=== PATIENT | male | born 1945 | race Caucasian/White ===

== ENCOUNTER → 2016-09-03 | Outpatient (CLI) | payer BC ==
[~2016-09-03] MED LIST: ALLO300T2 PO; CLB/200 PO; LSN/10125 PO; SIMV40TA2 PO
[2016-09-03 10:12] LABS: BASO % 0.3 %; BASO ABS # 0.01 K/uL (0-0.2); COMPLETE YES; EOS % 2.5 %; HEMATOCRIT 40.9 % (42-52); LYMPH % 27.3 %; MEAN CELL VOLUME 92.5 fL (80-100); MEAN CORPUSCULAR HEMOGLOBIN 33.5 pg (25-34); MEAN CORPUSCULAR HGB CONC 36.2 g/dl (32-36); MEAN PLATELET VOLUME 11.4 fL (7.4-10.4); MONO % 8.7 %; NEUT % 61.2 %; PLATELET COUNT 143 K/uL (130-400); RED BLOOD COUNT 4.42 M/uL (4.7-6.1); WHITE BLOOD COUNT 3.66 K/uL (4.8-10.8)
[2016-09-03 10:16] LABS: URINE APPEARANCE CLEAR (CLEAR); URINE BILIRUBIN NEG (NEG); URINE COLOR DK YELLOW; URINE NITRITE NEG (NEG); URINE SPECIFIC GRAVITY 1.028 (1.000-1.030); UROBILINOGEN NEG (NEG)
[2016-09-03 10:20] LABS: MANUAL MICROSCOPIC REQUIRED? NO; REVIEW REQ? NO
[2016-09-03 10:40] LABS: ALT/SGPT 23 U/L (12-78); AST/SGOT 13 U/L (15-37); BLOOD UREA NITROGEN 22 mg/dl (7-18); BUN/CREATININE RATIO 15.8 (10-20); CALCIUM 8.7 mg/dl (8.5-10.1); CARBON DIOXIDE 27 mmol/L (21-32); CHLORIDE 109 mmol/L (98-107); GLUCOSE 109 mg/dl (70-99); POTASSIUM 3.2 mmol/L (3.5-5.1); SODIUM 144 mmol/L (136-145)
[2016-09-03 10:42] LABS: ESTIMATED AVERAGE GLUCOSE 111 mg/dl; HA1C FLAG Normal (Normal)
[2016-09-03 10:46] LABS: CHOLESTEROL 129 mg/dl (0-200); CHOLESTEROL/HDL RATIO 3.7; HDL CHOLESTEROL 35 mg/dl; LDL CHOLESTEROL CALCULATED 68 mg/dl; TRIGLYCERIDES 130 mg/dl (0-150); VERY LOW DENSITY LIPOPROT CALC 26 mg/dl
--- NOTE | 2016-09-08 12:11 | CODING QUERY MEDICAL NECESSITY ---
SUPPORTING DIAGNOSIS NEEDED A supporting diagnosis is required for the test/procedure performed on this patient in order for us to be reimbursed by the patient's insurance. Please provide a supporting diagnosis for the following test/procedure listed below next to the test name along with your signature. *If there is no additional diagnosis for this patient that would support the following test/procedure please document that below next to the test/procedure. Test(s)/Procedure(s) that require a supporting diagnosis: * GLYCATED HEMOGLOBIN DIAGNOSIS: * PSA DIAGNOSIS: * DOS: 09/03/16 Provider Signature: Date: Thank you Elaine Burciaga [facility] Once completed, please kindly fax back to [phone] For questions please call [phone]
== END | disposition home or self-care (01) ==
LOC: C.LAB1850 07:59
PROVIDERS: ATTEND Internal Medicine
DX: E78.00 Pure hypercholesterolemia, unspecified (principal); I10 Essential (primary) hypertension; N28.9 Disorder of kidney and ureter, unspecified; R73.9 Hyperglycemia, unspecified; R97.20 Elevated prostate specific antigen [PSA]

== ENCOUNTER → 2017-03-10 | Outpatient (CLI) | payer BC ==
[2017-03-10 10:26] LABS: COMPLETE YES; EOS % 2.6 %; HEMATOCRIT 42.3 % (42-52); IG% 0.3 %; LYMPH ABS # 1.02 K/uL (1.2-3.4); MEAN CELL VOLUME 94.4 fL (80-100); MEAN CORPUSCULAR HEMOGLOBIN 33.7 pg (25-34); MEAN CORPUSCULAR HGB CONC 35.7 g/dl (32-36); MEAN PLATELET VOLUME 11.6 fL (7.4-10.4); MONO % 7.6 %; NEUT % 59.5 %; PLATELET COUNT 134 K/uL (130-400); RED BLOOD COUNT 4.48 M/uL (4.7-6.1)
[2017-03-10 10:53] LABS: ALT/SGPT 14 U/L (12-78); AST/SGOT 12 U/L (15-37); BLOOD UREA NITROGEN 19 mg/dl (7-18); BUN/CREATININE RATIO 13.8 (10-20); CALCIUM 8.8 mg/dl (8.5-10.1); CARBON DIOXIDE 26 mmol/L (21-32); CHLORIDE 109 mmol/L (98-107); CHOLESTEROL 125 mg/dl (0-200); GLUCOSE 104 mg/dl (70-99); POTASSIUM 3.5 mmol/L (3.5-5.1); SODIUM 142 mmol/L (136-145); URIC ACID 5.1 mg/dl (2.6-7.2)
[2017-03-10 10:56] LABS: ESTIMATED AVERAGE GLUCOSE 111 mg/dl; HA1C FLAG Normal (Normal)
[2017-03-10 11:04] LABS: CHOLESTEROL/HDL RATIO 4.2; HDL CHOLESTEROL 30 mg/dl; LDL CHOLESTEROL CALCULATED 75 mg/dl; TRIGLYCERIDES 98 mg/dl (0-150); VERY LOW DENSITY LIPOPROT CALC 20 mg/dl
--- NOTE | 2017-03-16 12:47 | CODING QUERY MEDICAL NECESSITY ---
CQSUPPORTING DIAGNOSIS NEEDED A supporting diagnosis is required for the test/procedure performed on this patient in order for us to be reimbursed by the patient's insurance. Please provide a supporting diagnosis for the following test/procedure listed below next to the test name along with your signature. *If there is no additional diagnosis for this patient that would support the following test/procedure please document that below next to the test/procedure. Test(s)/Procedure(s) that require a supporting diagnosis: DOS 03/10/17 GLYCATED HEMOGLOBIN TEST PROSTATE SPECIFIC TEST Provider Signature: Date: Thank you Chetna Jose [facility] Once completed, please kindly fax back to [phone] For questions please call [phone]
== END | disposition home or self-care (01) ==
LOC: C.LAB1850 07:51
PROVIDERS: ATTEND Internal Medicine
DX: E78.00 Pure hypercholesterolemia, unspecified (principal); R73.9 Hyperglycemia, unspecified; N28.9 Disorder of kidney and ureter, unspecified

== ENCOUNTER → 2017-05-06 | Outpatient (CLI) | payer BC ==
--- NOTE | 2017-05-06 15:45 | DIAGNOSTIC IMAGING REPORT ---
L KNEE 1 OR 2 VIEWS ROUTINE HISTORY: 71 years-old Male M25.569 Knee painRADLeft acute left knee pain without reported trauma COMPARISON: Left knee radiographs 06/25/2012 TECHNIQUE: Frontal and lateral views of the left knee FINDINGS: Mild, chronic mental osteoarthritis is noted, most pronounced within the medial compartment. There is no acute fracture or dislocation. Small joint effusion. Vascular calcifications are seen. IMPRESSION: 1. Mild tricompartment osteoarthritis, most pronounced within the medial compartment. 2. No acute fracture or dislocation. 3. Small joint effusion. The above report was generated using voice recognition software. It may contain grammatical, syntax or spelling errors. Electronically signed by: Clinton Price M.D. 05/06/2017 3:44 PM Dictated Date/Time: 05/06/2017 3:42 PM
== END | disposition home or self-care (01) ==
LOC: C.RAD1850 15:21
PROVIDERS: ATTEND Physician Assistant
DX: M17.12 Unilateral primary osteoarthritis, left knee (principal); M25.462 Effusion, left knee

== ENCOUNTER → 2017-09-04 | Outpatient (CLI) | payer BC ==
[2017-09-04 09:34] LABS: BASO % 0.2 %; BASO ABS # 0.01 K/uL (0-0.2); EOS % 2.7 %; EOS ABS # 0.12 K/uL (0-0.5); HEMATOCRIT 43.2 % (42-52); HEMOGLOBIN 15.4 g/dL (14.0-18.0); IG# 0.01 K/uL (0.00-0.02); LYMPH % 29.3 %; MEAN CELL VOLUME 93.9 fL (80-100); MEAN CORPUSCULAR HEMOGLOBIN 33.5 pg (25-34); MEAN CORPUSCULAR HGB CONC 35.6 g/dl (32-36); MEAN PLATELET VOLUME 11.5 fL (7.4-10.4); MONO % 10.8 %; MONO ABS # 0.48 K/uL (0.11-0.59); NEUT % 56.8 %; NEUT ABS # 2.52 K/uL (1.4-6.5); PLATELET COUNT 159 K/uL (130-400); RED CELL DISTRIBUTION WIDTH SD 47.6 fL (36.4-46.3); WHITE BLOOD COUNT 4.44 K/uL (4.8-10.8)
[2017-09-04 09:45] LABS: ALT/SGPT 23 U/L (12-78); AST/SGOT 15 U/L (15-37); BLOOD UREA NITROGEN 23 mg/dl (7-18); CALCIUM 9.2 mg/dl (8.5-10.1); CARBON DIOXIDE 27 mmol/L (21-32); CHOLESTEROL 125 mg/dl (0-200); CREATININE 1.44 mg/dl (0.60-1.40); GLUCOSE 100 mg/dl (70-99); POTASSIUM 3.4 mmol/L (3.5-5.1); SODIUM 139 mmol/L (136-145)
[2017-09-04 09:48] LABS: LDL CHOLESTEROL CALCULATED 76 mg/dl
[2017-09-04 09:58] LABS: HEMOGLOBIN A1C 5.6 % (4.5-5.6)
== END | disposition home or self-care (01) ==
LOC: C.LAB1850 07:39
PROVIDERS: ATTEND Physician Assistant
DX: E78.00 Pure hypercholesterolemia, unspecified (principal); R73.9 Hyperglycemia, unspecified; N28.9 Disorder of kidney and ureter, unspecified

== ENCOUNTER → 2018-03-04 | Outpatient (CLI) | payer BC ==
[2018-03-04 09:42] LABS: BASO % 0.4 %; BASO ABS # 0.01 K/uL (0-0.2); EOS % 3.5 %; HEMATOCRIT 43.9 % (42-52); HEMOGLOBIN 15.5 g/dL (14.0-18.0); LYMPH % 28.7 %; LYMPH ABS # 0.81 K/uL (1.2-3.4); MEAN CELL VOLUME 93.6 fL (80-100); MEAN CORPUSCULAR HGB CONC 35.3 g/dl (32-36); MEAN PLATELET VOLUME 11.5 fL (7.4-10.4); MONO % 12.4 %; MONO ABS # 0.35 K/uL (0.11-0.59); NEUT ABS # 1.55 K/uL (1.4-6.5); PLATELET COUNT 125 K/uL (130-400); RED CELL DISTRIBUTION WIDTH CV 13.9 % (11.5-14.5); RED CELL DISTRIBUTION WIDTH SD 47.7 fL (36.4-46.3); WHITE BLOOD COUNT 2.82 K/uL (4.8-10.8)
[2018-03-04 10:04] LABS: HEMOGLOBIN A1C 5.8 % (4.5-5.6)
[2018-03-04 10:07] LABS: ALT/SGPT 23 U/L (12-78); AST/SGOT 12 U/L (15-37); BLOOD UREA NITROGEN 21 mg/dl (7-18); CARBON DIOXIDE 27 mmol/L (21-32); CHOLESTEROL 127 mg/dl (0-200); GLUCOSE 99 mg/dl (70-99); LDL CHOLESTEROL CALCULATED 77 mg/dl; POTASSIUM 3.7 mmol/L (3.5-5.1); SODIUM 140 mmol/L (136-145); URIC ACID 5.5 mg/dl (2.6-7.2)
== END | disposition home or self-care (01) ==
LOC: C.LAB1850 08:04
PROVIDERS: ATTEND Internal Medicine
DX: R97.20 Elevated prostate specific antigen [PSA] (principal)